=== PATIENT | female | born 1990 | race Hispanic/Latino ===

== ENCOUNTER 2024-01-31 16:53 | Emergency (ER) | payer SELFPAY ==
[~2024-01-31] VITALS: Ht 165.1 cm; Wt 85.0 kg
[2024-01-31 17:15] VITALS: BP 106/50
[2024-01-31 17:30] VITALS: BP 103/56
[2024-01-31] MEDS ORDERED: ALUM & MAG HYDROX-SIMETHICONE 30 ML PO ONE (17:55)
[2024-01-31 18:09] VITALS: BP 106/58
[2024-01-31 18:10] LABS: BASO% 0.1 % (0-3); EOS% 2.9 % (0-8); HEMATOCRIT 36.8 % (37.0-47.0); HEMOGLOBIN 12.1 g/dl (12.0-16.0); IMMATURE GRANULOCYTES 0.2 % (0.0-5.0); LYMPH% 19.6 % (15-41); MEAN CELL VOLUME 88.5 fL CALC (80.0-100.0); MEAN CORPUSCULAR HGB 29.1 pG CALC (26.0-32.0); MEAN CORPUSCULAR HGB CONC 32.9 g/dL CAL (32.0-36.0); MONO% 5.7 % (2-13); NEUT# 6.33 thou/uL (2.00-7.15); NEUT% 71.5 % (42-76); RED BLOOD COUNT 4.16 mill/uL (4.20-5.60); RED CELL DISTRI WIDTH 14.1 % (11.5-15.5)
[2024-01-31 18:21] LABS: ALBUMIN 4.2 g/dL (3.2-5.0); BILIRUBIN, TOTAL 0.4 mg/dL (0.02-1.3); CREATININE 0.5 mg/dL (0.5-1.0); POTASSIUM 3.6 mmol/l (3.5-5.1); TOTAL PROTEIN 7.4 g/dL (6.3-8.2)
[2024-01-31 18:37] LABS: URINE BILIRUBIN - DIPSTICK Negative (NEGATIVE); URINE BLOOD DIPSTICK Negative (NEGATIVE); URINE GLUCOSE - DIPSTICK Negative (NEGATIVE); URINE KETONE >=160 mg/dL (NEGATIVE); URINE LEUK ESTERASE Negative (NEGATIVE); URINE NITRITE - DIPSTICK Negative (Negative); URINE PH 6.5 (4.5-8.0); URINE PROTEIN - DIPSTICK Negative (NEG-TRACE); URINE SPECIFIC GRAVITY 1.025; URINE UROBILINOGEN - DIPSTICK 0.2 E.U./dL (0.2)
[2024-01-31 18:42] LABS: URINE COLOR Yellow
[2024-01-31] MEDS ORDERED: KETOROLAC TROMETHAMINE 15 MG/ML SDV IV ONE (22:15)
[2024-01-31] MEDS ORDERED: ACETAMINOPHEN 500 MG TAB PO ONE (22:15)
[2024-01-31] MEDS ORDERED: KETOROLAC TROMETHAMINE 15 MG/ML SDV IM ONE (22:40)
[2024-01-31 22:50] VITALS: BP 106/58
== END 2024-01-31 22:50 | disposition home or self-care (01) | DRG 833 ==
LOC: ED 16:53
PROVIDERS: Nurse Practitioner
DX: O99.612 Diseases of the digestive system complicating pregnancy, second trimester (principal); K80.20 Calculus of gallbladder without cholecystitis without obstruction; Z3A.19 19 weeks gestation of pregnancy